=== PATIENT | male | born 1945 | race Caucasian/White ===

== ENCOUNTER 2020-09-02 19:16 | Emergency (ER) | payer OTHER, MEDICARE ==
--- OUTSIDE RECORDS SUMMARY | 2020-09-02 19:28 | XMS ---
:1945 [facility] Organization [facility] Care Team Providers Name Role Phone Devin Steele MD Unavailable Unavailable JAMIE COATS Unavailable Unavailable FelicianoJerome MD Unavailable Unavailable Feliciano, K MD Unavailable Unavailable Feliciano, K MD Unavailable Unavailable Feliciano, K MD Unavailable Unavailable Feliciano, K MD Unavailable Unavailable Feliciano, K MD Unavailable Unavailable Feliciano, K MD Unavailable Unavailable Feliciano, K MD Unavailable Unavailable Feliciano, K MD Unavailable Unavailable Feliciano, K MD Unavailable Unavailable Feliciano, K MD Unavailable Unavailable Feliciano, K MD Unavailable Unavailable Feliciano, K MD Unavailable Unavailable Feliciano, K MD Unavailable Unavailable Feliciano, K MD Unavailable Unavailable Feliciano, K MD Unavailable Unavailable Feliciano, K MD Unavailable Unavailable Feliciano, K MD Unavailable Unavailable Feliciano, K MD Unavailable Unavailable Feliciano, K MD Unavailable Unavailable Feliciano, K MD Unavailable Unavailable Feliciano, K MD Unavailable Unavailable Feliciano, K MD Unavailable Unavailable Feliciano, K MD Unavailable Unavailable ZWEIBEL, FRAN Unavailable Unavailable ZWEIBEL, FRAN Unavailable Unavailable ZWEIBEL, FRAN Unavailable Unavailable ZWEIBEL, FRAN Unavailable Unavailable Re-disclosure Warning The records that you are about to access may contain information from federally- assisted alcohol or drug abuse programs. If such information is present, then the following federally mandated warning applies: This information has been disclosed to you from records protected by federal confidentiality rules (42 CFR part 2). The federal rules prohibit you from making any further disclosure of this information unless further disclosure is expressly permitted by the written consent of the person to whom it pertains or as otherwise permitted by 42 CFR part 2. A general authorization for the release of medical or other information is NOT sufficient for this purpose. The Federal rules restrict any use of the information to criminally investigate or prosecute any alcohol or drug abuse patient.The records that you are about to access may contain highly sensitive health information, the redisclosure of which is protected by Article 27-F of the [facility] Public Health law. If you continue you may haveaccess to information: Regarding HIV / AIDS; Provided by facilities licensed or operated by the [facility] Office of Mental Health; or Provided by the [facility] Office for People With Developmental Disabilities. If such information is present, then the following [facility] mandated warning applies: This information has been disclosed to you from confidential records which are protected by state law. State law prohibits you from making any further disclosure of this information without the specific written consent of the person to whom it pertains, or as otherwise permitted by law. Any unauthorized further disclosure in violation of state law may result in a fine or nursing home sentence or both. A general authorization for the release of medical or other information is NOT sufficient authorization for further disclosure. Encounters Encounter Providers Location Date Indications Data Source(s ) Inpatient Attender: PAULY 08/31/2020 [facility] JAMIE AcunaAdmitter: 02:39:00 [facility]ender: Jerome 08/03/2020 11:45:00 AM Hammad Wiggins MD [facility] Outpatient Attender: WENDY 06/22/2020 02:58:00 PM Z11.59 Hammad Saldana [facility] Z11.59 Outpatient Attender: Devin 07/04/2019 [facility] Mickey Steele MD 09:15:00 AM EDT - OSTEOARTHRITIS [facility] 07/04/2019 HAND 07:11:00 AM EDT BASAL JOINT OSTEOARTHRITIS RIGHT HAND Patient discharged. Insurance Providers Payer name Policy type Policy ID Covered Covered republican's Policy P prosper / Coverage republican ID relationship to [facility] type ramirez [facility] [id number] SP [id number] CARE OPTIONS MEDICARE [id number] SP [id number] T UNK UNK UNK UNK UNK UNK [facility] [id number] PT [id number] CARE OPT[employer] MEDICARE [id number] PT [id number] [facility] [id number] PT [id number] CARE OPTIONS [facility] [id number] PT [id number] CARE [employer] MEDICARE [id number] PT [id number] A Results ID Date Data Source [id number] 09/02/2020 09:52:00 AM [place] [facility] [id number] Name Value Range Interpretation Description Data Sup porting Code Source(s) Document(s ) Echo 2D [id number] [facility] <td> 09/02/2020 [facility] M-Mode [id number] 09:52</td><td> [facility] Complete [id number] Echo 2D M-Mode [facility] Care (TTE) Non-Invasive Complete (TTE) [facility] </td><td> Laboratory [id number] Advanced
Physician [facility]
[address] [place] [address] Road [id number] [place]
[address] Phone [phone] Non-Invasive Adult
Echocardiogram Cardiology Report Name:
DAWOOD MCARTHUR P
Study Date: Advanced 09/02/2020
09:52 AM MRN: Physician [id number]
Services, [facility] BP: 107/68
mmHg : [address]
Gender: [place], [place] Male Age: 75
yrs [id number]
Height: 68 in Phone [phone]) Account
Number: [phone] Fax [phone]
(170) Weight: 176 lb [phone] BSA: 1.9 m2
Patient Adult Location: 4NE Echocardiogram Reason For Report Study: SYNCOPE
& COLLAPSE Name: Tyra MCARTHUR Physician: SHEILA Montano Date: Performed By: 09/02/2020 Nichol Abad, 09:52 AM RDCS
Interpretation Summary The left ventricle BP: is normal in 107/68 mmHg size. There
is normal left : ventricular 1945 wall thickness. Left Gender: ventricular Male systolic
Age: function is 75 yrs normal. Ejection Height: 68 Fraction is in 60-65%. The
left Account Number: ventricular [id number] wall motion is normal. Weight: 176 lb Diastolic
filling BSA: 1.9 m2 assessment is suggestive of
the presence of Patient normal left Location: 4NE atrial
pressure. The Reason For right ventricle Study: SYNCOPE size is mildly & COLLAPSE dilated . There is normal

right Ordering ventricular Physician: wall thickness. SHEILA OSORIO The right
ventricular Performed systolic By: Pollo, function is Nichol, RDCS normal. The right atrium is

dilated. Interpretation Estimated Summary pulmonary
artery systolic The left pressure is ventricle is mildly elevated normal in size. at 35mmHg. The inferior
There vena cava is is normal left dilated. ventricular ICD-10 R55 - wall thickness. Syncope and collapse.
Left Procedure ventricular 97952 - A systolic complete function is two-dimensional normal. transthoracic
echocardiogram Ejection was Fraction is performed. 60-65%. Study quality
is good. The left Left Ventricle ventricular The left wall motion is ventricle is normal. normal in size.
There is normal Diastolic left filling ventricular assessment is wall suggestive of thickness. Left the presence of ventricular normal left systolic
function is atrial normal. pressure. Ejection
Fraction is The right 60-65%. The ventricle size left is mildly ventricular dilated . wall motion is
normal. There is normal Diastolic right filling ventricular assessment is wall thickness. suggestive of the presence of
The normal left right atrial ventricular pressure. systolic Right function is Ventricle The normal. right ventricle
size is mildly The right dilated . There atrium is is normal right dilated. ventricular
wall thickness. Estimated The right pulmonary ventricular artery systolic systolic pressure is function is mildly elevated normal. at 35mmHg. Left Atrium
Normal left The inferior atrial size. vena cava is Right Atrium dilated. The right

atrium is ICD-10 dilated.
Aortic Valve R55 - Syncope The aortic and collapse. valve is trileaflet.

There is mild Procedure aortic valve
calcification. 47157 - A There is no complete aortic two-dimensional stenosis. No transthoracic significant echocardiogram aortic was regurgitation.
Mitral performed. Valve Study quality Structurally is good. normal mitral

valve. Trivial Left mitral valve Ventricle regurgitation.
Tricuspid The left Valve ventricle is Structurally normal in size. normal There is normal tricuspid left valve. Trivial ventricular tricuspid valve wall regurgitation.
Pulmonic thickness. Left Valve ventricular Structurally systolic normal pulmonic function is valve. There is normal. no pulmonic Ejection valve stenosis. Fraction Trivial
pulmonic valve is 60-65%. The regurgitation. left Aorta The ventricular aortic root is wall motion is normal in size. normal. Pulmonary Diastolic Artery filling Estimated
pulmonary assessment is artery systolic suggestive of pressure is the presence of mildly elevated normal left at 35mmHg. atrial Venous The pressure. inferior vena cava is

dilated. Right Pericardium Ventricle There is no
pericardial The right effusion. ventricle size [facility] is mildly Jessica Lloji. dilated . There MMode/2D is normal right Measurements & Calculations
IVSd: 0.96 cm ventricular wall thickness. LVIDd: 5.0 cm The right LV ventricular mass(C)d: systolic LVIDs: 3.1 cm function is 173.3
grams LVPWd: normal. 0.95 cm

LV Left Atrium mass(C)dI:
89.5 grams/m2 Normal left atrial size.

Right Atrium
_ Ao root The right diam: 3.4 cm atrium is Asc Aorta dilated. diam: 3.0 cm

Left atrial Aortic Valve volume LA dimension: 3.9
The cm Ao arch aortic valve is diam: 2.8 cm trileaflet. (2c): 52.1 ml There is mild Left atrial aortic valve volume (4c): calcification. 54.8 ml
There is no aortic stenosis. No significant _ Left atrial aortic volume index regurgitation. Left atrial volume index

(2c): 26.9 Mitral Valve ml/m2
(4c): 28.3 Structurally ml/m2 normal mitral Doppler valve. Trivial Measurements & mitral valve Calculations regurgitation. MV E max francia: 77.1 cm/sec MV

dec time: 0.23 Tricuspid Valve sec Lat E' francia: 10.1 cm/sec
MV A max francia: Structurally 70.3 cm/sec normal tricuspid valve. Trivial tricuspid valve regurgitation. _ Med E' francia: 8.2 cm/sec

E/E' Lateral: Pulmonic 7.6 AV v Valve max: 143.9
cm/sec E/E' Structurally Medial: 9.4 normal pulmonic AV max P.3 valve. There is mmHg no pulmonic valve stenosis.
Trivial _ LVOT max pulmonic valve P.5 mmHg regurgitation. PA max P.0 mmHg TR v

max: 250.4 Aorta cm/sec LVOT v
The max: 94.1 aortic root is cm/sec LVOT normal in size. VTI: 22.0 cm

Pulmonary Artery
Estimated _ RV S francia: pulmonary 12.2 cm/sec artery systolic E/E' Average: pressure is 8.5 TR max mildly elevated gradient: 25.1 at 35mmHg. mmHg

Venous
The inferior vena cava is _ dilated. Reading

Physician: Pericbina Dixon
MD Krysten There is no 09/02/2020 pericardial 11:38 AM effusion.

[facility]
Jessica De La Torre.

MMode/2D Measurements & Calculations
IVSd: 0.96 cm LVIDd: 5.0 cm LV mass(C)d:
LVIDs: 3.1 cm 173.3 grams
LVPWd: 0.95 cm LV mass(C)dI:
89.5 grams/m2

_
Ao root diam: 3.4 cm Asc Aorta diam: 3.0 cm Left atrial volume
LA dimension: 3.9 cm Ao arch diam: 2.8 cm (2c): 52.1 ml
Left atrial volume
(4c): 54.8 ml

_
Left atrial volume index Left atrial volume index
(2c): 26.9 ml/m2 (4c): 28.3 ml/m2

<br/ > Doppler Measurements & Calculations
MV E max francia: 77.1 cm/sec MV dec time: 0.23 sec Lat E' francia: 10.1 cm/sec
MV A max francia: 70.3 cm/sec
__
Med E' francia: 8.2 cm/sec E/E' Lateral: 7.6 AV v max: 143.9 cm/sec
E/E' Medial: 9.4 AV max P.3 mmHg

_
LVOT max P.5 mmHg PA max P.0 mmHg TR v max: 250.4 cm/sec
LVOT v max: 94.1 cm/sec
LVOT VTI: 22.0 cm

_
RV S francia: 12.2 cm/sec E/E' Average: 8.5 TR max gradient: 25.1 mmHg

_

Reading Physician:
Zack Bashir MD 09/02/2020 11:38 AM

</td> ID Date Data Source [id number] 09/02/2020 12:00:00 AM EDT [facility] [place] [id number] Name Value Range Interpretation Description Data Sup porting Code Source(s) Document(s ) Neurophysiol Neurophysiol <td> 09/02/2020 [facility] </td><td> [facility] Laboratory NAME: Neurophysiology [email or web address] DAWOOD MR#: </td><td>
<b [id number] r/>

<br ADMIT DATE: /> 08/31/2020 Neurophysiology SERVICE DATE:

08/31/2020 NAME: DISCHARGE DAWOOD MCARTHUR DATE:
BILLING MR#: [id number] NUMBER:
[id number] ADMIT DATE: TEST DATE: 08/31/2020 08/31/2020
LOG: SERVICE DATE: 08/31/2020 DATE OF
: DISCHARGE DATE: 1945
AGE: 75. BILLING NUMBER: LOCATION: [id number] U

REFERRING TEST DATE: PHYSICIAN: 08/31/2020 Jamie

Pauly, LO M.DMatias HISTORY AND

CONDITIONS DATE OF : OF 1945 RECORDING:

This is a AGE: 75. bedside 24-hour

18-channel LOCATION: TCU digital video EEG

recording on REFERRING a PHYSICIAN: Jamie 75-year-old Dorcas Coats man with a history of

status HISTORY AND post fall CONDITIONS OF and possible RECORDING: This seizure. is a bedside INDICATIONS 24-hour FOR 18-channel MONITORING:
1. To digital video document EEG recording on ictal or a 75-year-old interictal man with a epileptiform history of abnormalitie status s. 2. To
post document fall and subclinical possible seizure seizure. activity.

START INDICATIONS FOR DATE: MONITORIN08/31/2020
at 10:25:00 1. To document p.m. ictal or END DATE: interictal 09/01/2020 epileptiform at 11:27:00 abnormalities. a.m.
BACKGROUND 2. To ACTIVITY: document The patient subclinical is awake and seizure alert with activity. eyes open.

Intermittent START DATE: eye blink 08/31/2020 at artifacts 10:25:00 p.m. are seen in the tracing.

The END DATE: background 09/01/2020 at shows 11:27:00 a.m. generalized low-voltage

activity in BACKGROUND all areas ACTIVITY: The with scant patient is awake low and alert with amplitude 8 eyes open. Hz rhythm in
the Intermittent eye posterior blink artifacts head are seen in the regions. tracing. The Symmetrical background low
voltage fast shows activity generalized seen in the low-voltage central activity in all regions. areas with scant INTERICTAL low EPILEPTIFORM
ABNORMALITIE amplitude 8 Hz S: None. rhythm in the ICTAL posterior head EPILEPTIFORM regions. ABNORMALITIE Symmetrical low S: None.
CLINICAL voltage fast EVENTS: activity seen in None. the central IMPRESSION: regions. This 12-hour

bedside INTERICTAL 18-channel EPILEPTIFORM digital ABNORMALITIES: video EEG None. recording

is within ICTAL normal EPILEPTIFORM limits. No ABNORMALITIES: focal or None. epileptiform

abnormalitie CLINICAL EVENTS: s are seen. None.

DICT: KANE IMPRESSION: PARK DD: This 12-hour 09/01/20 bedside 09 PM 18-channel DT: digital video 0 EEG recording 00:09:31/HN
Job#: is within [id number] normal limits. No focal or ========= epileptiform END OF abnormalities DOCUMENT / are seen. CHANGE LOG FOLLOWS

< br/>
===== DICT: KANE Elec. Signed PARK By PARK
DD: KANE 09/01/20 09 #[id number] on PM 09/02/2020
07:38 ET /HN

===== END OF DOCUMENT / CHANGE LOG FOLLOWS =

Elec. Signed By
KANE NICK #[id number]
on 09/02/2020 07:38 ET

</td> ID Date Data Source [id number] 09/01/2020 10:32:00 PM EDT [facility] [id number] Name Value Range Interpretation Description Data Sup porting Code Source(s) Document(s ) Leukocytes 30.5 k/mm3 4.8-10 <td> 09/01/2020 [place] [#/volume] in .8 22:32</td><td> [facility] Blood by k/mm3 WBC [facility] Automated </td><td><[employer] count raph styleCode="Bold "> 30.5 * CH </paragraph>
(4.8-10.8) k/mm3 </td> Erythrocytes 4.37 m/mm3 4.70-6 <td> 09/01/2020 [facility] r [#/volume] in .10 22:32</td><td> [place] Blood m/mm3 RBC Health Care </td><td><[employer] raph styleCode="Bold "> 4.37 L </paragraph>
(4.70-6.10) m/mm3 </td> Hemoglobin 12.6 g/dL 14.0-1 <td> 09/01/2020 [place] [Mass/volume] 8.0 22:32</td><td> [place] in Blood g/dL HGB [facility] </td><td><[employer] raph styleCode="Bold "> 12.6 L </paragraph>
(14.0-18.0) g/dL </td> Hematocrit 40.5 % 40.8-4 <td> 09/01/2020 [place] [Volume 6.9 % 22:32</td><td> County Fraction] of HCT Health Care Blood by </td><td><[employer] Automated raph count styleCode="Bold "> 40.5 L </paragraph>
(40.8-46.9) % </td> Erythrocyte 31.1 % 32.0-3 <td> 09/01/2020 [place] mean 6.0 % 22:32</td><td> County corpuscular MCHC [facility] Care hemoglobin </td><td><[employer] concentration raph [Mass/volume] styleCode="Bold in Blood from "> Fetus by 31.1 Automated L count </paragraph>
(32.0-36.0) % </td> Erythrocyte 92.7 fL 80.0-9 <td> 09/01/2020 [place] mean 4.0 fL 22:32</td><td> County corpuscular MCV </td><td> Health Care volume Corporation [Entitic 92.7 volume] by Automated
count (80.0-94.0) fL </td> Erythrocyte 28.8 pg 27.0-3 <td> 09/01/2020 [place] mean 1.5 pg 22:32</td><td> [facility] corpuscular MCH </td><td> Health Care hemoglobin [facility] [Entitic mass] 28.8 by Automated count
(27.0-31.5) pg </td> Erythrocyte 13.4 % 11.5-1 <td> 09/01/2020 [place] distribution 4.5 % 22:32</td><td> County width [Entitic RDW </td><td> Health Car e volume] by [facility] Automated 13.4 count
(11.5-14.5) % </td> Platelet mean 12.3 fL 9.8-12 <td> 09/01/2020 [facility] r volume .8 fL 22:32</td><td> [facility] [Entitic MPV </td><td> Health Care volume] in [facility] Blood by 12.3 Automated count
(9.8-12.8) fL </td> Platelets 79 k/mm3 160-41 <td> 09/01/2020 [place] [#/volume] in 0 22:32</td><td> [facility] Blood by k/mm3 Platelet Count [employer] Automated </td><td><[employer] count raph styleCode="Bold "> 79 L </paragraph>
(160-410) k/mm3 </td> Monocytes/Leuk 3.0 % 0.0-11 <td> 09/01/2020 [facility] er ocytes [Pure .0 % 22:32</td><td> County number Monocytes. Health Care fraction] in </td><td> [facility] Blood by Automated 3.0 count
(0.0-11.0) % </td> Lymphocytes 78.0 % 16.0-5 <td> 09/01/2020 [place] [#/volume] in 0.0 % 22:32</td><td> [facility] Blood by Lymphocytes [employer] Automated </td><td><[employer] count raph styleCode="Bold "> 78.0 H </paragraph>
(16.0-50.0) % </td> Basophils 0.0 % 0.0-2. <td> 09/01/2020 [place] [#/volume] in 0 % 22:32</td><td> [facility] Blood by Basophils Health Care Automated </td><td> Corporation count 0.0
(0.0-2.0) % </td> Basophils+Eosi 0.0 % 0.0-5. <td> 09/01/2020 [facility] er nophils+Monocy 0 % 22:32</td><td> [facility] bernard [#/volume] Eosinophils Health Care in Blood by </td><td> [facility] Automated count 0.0
(0.0-5.0) % </td> Anisocytosis Slight <td> 09/01/2020 [place] [Presence] in 22:32</td><td> [facility] Blood by Light Anisocytosis Health Care microscopy </td><td> [facility] Slight
</td> Atypical 2.0 % % <td> 09/01/2020 [place] Lymphs 22:32</td><td> [facility] Atypical Lymphs Health Care </td><td><e27 graph styleCode="Bold "> 2.0 * AB </paragraph>
% </td> Neutrophils 17.0 % 34.0-7 <td> 09/01/2020 [place] [#] in Body 6.0 % 22:32</td><td> [facility] fluid by Neutrophils Health Care Manual count </td><td><[employer] raph styleCode="Bold "> 17.0 L </paragraph>
(34.0-76.0) % </td> Schistocytes Occasional <td> 09/01/2020 [facility] r [Presence] in 22:32</td><td> [facility] Blood by Light Schistocytes Health Care microscopy </td><td> [facility] Occasional
</td> Macrocytes Slight <td> 09/01/2020 [place] [Presence] in 22:32</td><td> [facility] Blood by Light Macrocytic Health Care microscopy </td><td> [facility] Slight
</td> Ovalocytes Few <td> 09/01/2020 [place] [Presence] in 22:32</td><td> County Blood by Light Ovalocytes Health Care microscopy </td><td> [facility] Few
</td> Potassium 3.9 mEq/L 3.5-5. <td> 09/01/2020 [place] [Moles/volume] 1 22:32</td><td> County in Serum or mEq/L Potassium-Serum Health Care Plasma </td><td> [facility] 3.9
(3.5-5.1) mEq/L </td> Sodium 140 mEq/L 135-14 <td> 09/01/2020 [place] [Moles/volume] 5 22:32</td><td> County in Serum or mEq/L Sodium-Serum Health Care Plasma </td><td> [facility] 140
(135-145) mEq/L </td> Glucose 161 mg/dL 70-105 <td> 09/01/2020 [place] [Mass/volume] mg/dL 22:32</td><td> County in Blood Glucose-Serum Health Care </td><td><[employer] raph styleCode="Bold "> 161 H </paragraph>
(70-105) mg/dL </td> Chloride 104 mEq/L 98-107 <td> 09/01/2020 [place] [Moles/volume] mEq/L 22:32</td><td> County in Serum or Chloride Health Care Plasma </td><td> [facility] 104
(98-107) mEq/L </td> Carbon 28 mEq/L 22-30 <td> 09/01/2020 [place] dioxide, total mEq/L 22:32</td><td> [facility] [Moles/volume] CO2 </td><td> Health Car e in Serum or [facility] Plasma 28
(22-30) mEq/L </td> Urea nitrogen 15 mg/dL 6-22 <td> 09/01/2020 [place] r [Mass/volume] mg/dL 22:32</td><td> County in Blood BUN </td><td> Health Care Corporation 15
(6-22) mg/dL </td> Aspartate 27 U/L 4-35 <td> 08/31/2020 [place] aminotransfera U/L 09:30</td><td> [facility] se [Enzymatic AST (SGOT) Health Care activity/volum </td><td> Corporation e] in Serum or Plasma 27
(4-35) U/L </td> Alanine 17 U/L 6-55 <td> 08/31/2020 [place] aminotransfera U/L 09:30</td><td> [facility] se [Enzymatic ALT (SGPT) Health Care activity/volum </td><td> Corporation e] in Serum or Plasma 17
(6-55) U/L </td> Creatinine 0.96 mg/dL 0.72-1 <td> 09/01/2020 [place] [Moles/volume] .25 22:32</td><td> [facility] in Serum or mg/dL Creatinine. Health Care Plasma </td><td> [facility] 0.96
(0.72-1.25) mg/dL </td> Bilirubin.tota 1.2 mg/dL 0.2-1. <td> 08/31/2020 [facility] er l 3 09:30</td><td> [facility] [Mass/volume] mg/dL Bilirubin - Health Care in Blood [employer] </td><td> 1.2
(0.2-1.3) mg/dL </td> Proteins - 5.4 g/dL 6.4-8. <td> 08/31/2020 [place] Total 3 g/dL 09:30</td><td> [facility] Proteins - Health Care Total [facility] </td><td><manny raph styleCode="Bold "> 5.4 L </paragraph>
(6.4-8.3) g/dL </td> Albumin 3.7 g/dL 3.4-4. <td> 08/31/2020 [place] [Mass/volume] 8 g/dL 09:30</td><td> [facility] in Serum or Albumin Health Care Plasma </td><td> [facility] 3.7
(3.4-4.8) g/dL </td> Calcium 8.5 mg/dL 8.6-10 <td> 09/01/2020 [place] [Mass/volume] .2 22:32</td><td> County in Blood mg/dL Calcium Health Care </td><td><[employer] raph styleCode="Bold "> 8.5 L </paragraph>
(8.6-10.2) mg/dL </td> Hemolysis No <td> 09/01/2020 [place] index of Serum Hemolysis 22:32</td><td> County or Plasma Hemolysis Index Health Care </td><td> [facility] No Hemolysis
</td> Globulin 1.7 gm/dL 2.9-4. <td> 08/31/2020 [place] [Mass/volume] 0 09:30</td><td> County in Serum gm/dL Globulin Health Care </td><td><[employer] raph styleCode="Bold "> 1.7 L </paragraph>
(2.9-4.0) gm/dL </td> Anion gap in 8 mEq/L 7-13 <td> 09/01/2020 [place] Serum or mEq/L 22:32</td><td> [facility] Plasma Anion Gap [facility] </td><td> [facility] 8
(7-13) mEq/L </td> Lipemic index No Lipemia <td> 09/01/2020 [facility] er of Serum or 22:32</td><td> [facility] Plasma Lipemia Index Health [facility] </td><td> [facility] No Lipemia
</td> Phosphate 2.3 mg/dL 2.3-4. <td> 09/01/2020 [place] [Mass/volume] 7 22:32</td><td> County in Serum or mg/dL Inorganic [facility] Plasma Phosphorus [facility] </td><td> 2.3
(2.3-4.7) mg/dL </td> Icteric index Non Icteric <td> 09/01/2020 [facility] of Serum or 22:32</td><td> [facility] Plasma Icteric Index Health Care </td><td> [facility] Non Icteric
</td> aPTT panel - 29.6 secs 25.0-3 <td> 09/01/2020 [place] Platelet poor 6.5 22:32</td><td> [facility] plasma secs Partial Health Care Thromboplastin [facility] Time </td><td> 29.6
(25.0-36.5) secs
PLEASE NOTE: New reference range in effect June 08, 2020.

(25.0-36.5) secs </td> Prothrombin 13.5 secs 9.4-12 <td> 09/01/2020 [place] time (PT) .5 22:32</td><td> [facility] secs Prothrombin Health Care Time. [facility] </td><td><manny raph styleCode="Bold "> 13.5 H </paragraph>
(9.4-12.5) secs </td> Amylase 95 U/L 22-100 <td> 08/31/2020 [place] [Enzymatic U/L 01:38</td><td> [facility] activity/volum Amylase Level Health Care e] in Serum or </td><td> [facility] Plasma 95
(22-100) U/L </td> Magnesium 1.8 mg/dL 1.6-2. <td> 09/01/2020 [place] [Mass/volume] 6 22:32</td><td> [facility] in Serum or mg/dL Magnesium Level Health Care Plasma </td><td> [employer] 1.8
(1.6-2.6) mg/dL </td> ID Date Data Source [id number] 08/31/2020 08:07:00 PM [place] [facility] [id number] [facility] Name Value Range Interpretation Description Data Sup porting Code Source(s) Document(s ) Cervical (PACSIMAGE <td> 08/31/2020 [place] Spine 02:11</td><td> [facility] W/Out ) Final Cervical Spine Health Care Contrast- Result W/Out [facility] CT Name: </td><td><paragr CAMEROON, aph TRAUMA MRN: styleCode="Hailna [id number] Sex: F s">(PACSIMAGE : 01/29/1967 )</paragraph><br/ Location: F >
Final Admitting Result Physician:

EMERGENCY Name: [facility], SERVICE TRAUMA Requesting
MRN: Physician: [id number] Sex: F ASPEN AZIM
Exam: CT C : 01/29/1967 SPINE C- Location: F 08/31/2020
02:24 Admitting HISTORY: Physician: Trauma EMERGENCY SERVICE TECHNIQUE: A
noncontrast Requesting multidetector Physician: ASPEN spiral CT AZIM examination

of the Exam: CT C SPINE cervical spine C- 08/31/2020 was performed, 02:24 followed by

multiple 2D HISTORY: Trauma sagittal and coronal

reconstruction TECHNIQUE: A s. noncontrast Up-to-date CT multidetector equipment spiral CT using examination Automatic
of Exposure the cervical Control, dose spine was modulation, performed, and iterative followed by reconstruction multiple 2D dose reduction
software was sagittal and employed. coronal The total reconstructions. study DLP is approximately

1318.9 mGy-cm. Up-to-date CT equipment using COMPARISON: Automatic None. Exposure Control, FINDINGS: dose There is no
acute cervical modulation, and spine fracture iterative or traumatic reconstruction subluxation. dose reduction Facets are software anatomically
was aligned and employed. intact.
The There is total study DLP maintenance of is approximately usual cervical 1318.9 mGy-cm. lordosis. There is 2 mm

of COMPARISON: None. degenerative anterolisthesi

s of C4 on C5. FINDINGS: Vertebral body

height is There is no acute preserved cervical spine throughout the fracture or cervical traumatic spine. There subluxation. is mild
multilevel Facets are loss of anatomically intervertebral aligned and disc height intact. throughout the

cervical spine There is with vacuum maintenance of disc phenomena usual cervical at C5-C6 and lordosis. There C6-C7. is 2 mm There is
of multilevel degenerative degenerative anterolisthesis spondylosis of C4 on C5. without Vertebral body high-grade height central canal
is stenosis. preserved There is throughout the stenosis most cervical spine. prominently of There is mild the left multilevel C4-C5 and
C5-C6 neural loss of foramen intervertebral secondary to disc height uncovertebral throughout the facet cervical spine hypertrophy.
There are with vacuum disc prominent phenomena at bilateral C5-C6 and C6-C7. cervical lymph nodes. Support

lines are There is seen. multilevel IMPRESSION: degenerative 1. No spondylosis evidence of without acute fracture high-grade or traumatic
subluxation to central canal the stenosis. There visualized is stenosis most cervical prominently of spine. 2.
Multilevel the left C4-C5 degenerative and C5-C6 neural changes, foramen secondary incompletely to uncovertebral characterized
on CT. facet Resident hypertrophy. Radiologist:

Ric Mendez MD There are Resident prominent Radiologist bilateral Attending cervical lymph Radiologist: nodes. Support Marcellus Suh MD
are Finalizing seen. Radiologist:

Marcellus IMPRESSION: Vikash JHAVERI

Transcribed 1. No evidence Date: of acute fracture 08/31/2020 or traumatic 02:50 subluxation to Finalized
Date: the visualized 08/31/2020 cervical spine. 08:34
2. Multilevel degenerative changes, incompletely characterized
on CT.

<b r/> Resident Radiologist: Ric Mendez MD Resident Radiologist
Attending Radiologist: Marcellus Suh MD
Finalizing Radiologist: Marcellus Suh MD
Transcribed Date: 08/31/2020 02:50
Finalized Date: 08/31/2020 08:34

</td> Chest (PACSIMAGE <td> 08/31/2020 [place] Portable 01:56</td><td> [facility] ) Final Chest Portable Health Care Result </td><td><[employer] Name: JONA, styleCode="Italic TRAUMA MRN: s">(PACSIMAGE [id number] Sex: F : )</paragraph><br/ 01/29/1967 >
Final Location: F Result Admitting

Physician: Name: [facility], EMERGENCY TRAUMA SERVICE
MRN: Requesting [id number] Sex: F Physician:
TITO GONZALES : 01/29/1967 Exam: Location: F CHEST PORTABLE
08/31/2020 Admitting 01:53 Physician: HISTORY: EMERGENCY SERVICE Trauma. Fall.
TECHNIQUE: Requesting Portable chest Physician: TITO GONZALES COMPARISON:

None Exam: CHEST available. PORTABLE FINDINGS: 08/31/2020 01:53 Endotracheal tube

terminates in HISTORY: mid thoracic Trauma. Fall. trachea.

Enteric TECHNIQUE: catheter Portable chest courses past radiograph the GE

junction with COMPARISON: None tip excluded available. from the

field view. FINDINGS: No focal
consolidation. Endotracheal tube There are no terminates in mid pleural thoracic trachea. effusions. Enteric There is no
discernible catheter courses pneumothorax. past the GE The cardiac junction with tip silhouette is excluded from unremarkable.
There are the field view. multiple right-sided

No rib fractures. focal There is some consolidation. prominent There are no markings noted pleural in the right effusions. There upper lung
field. is no IMPRESSION: discernible 1. No focal pneumothorax. The consolidation cardiac seen. 2. silhouette is Multiple unremarkable. right-sided
rib fractures. There are In view of the multiple clinical right-sided rib history of fractures. There trauma, is some prominent dedicated
imaging of markings noted clinical in the right regions of upper lung field. interest are recommended

for further IMPRESSION: evaluation. In
1. addition No focal recommend consolidation correlation seen. with the CT
2. study Multiple performed on right-sided rib 08/31/2020. fractures. In view of the Resident clinical Radiologist:
Ric Mendez MD history of Resident trauma, dedicated Radiologist imaging of Attending clinical regions Radiologist: of interest Matt Silverio
are recommended Finalizing for further Radiologist: evaluation. In Matt bedolla MD recommend Transcribed
Date: correlation with 08/31/[address] study 02:10 performed on Finalized 08/31/2020. Date: 08/31/2020

<b 07:59 r/> Resident Radiologist: Ric Mendez MD Resident Radiologist
Attending Radiologist: Matt Silverio MD
Finalizing Radiologist: Matt Silverio MD
Transcribed Date: 08/31/2020 02:10
Finalized Date: 08/31/2020 07:59

</td> Brain (PACSIMAGE <td> 08/31/2020 [place] With&With 20:07</td><td> [place] out ) Final Brain Health Care Contrast- Result With&Without [employer] MRI Name: Contrast-MRI LYUBOV, </td><td><iván Chapman MRN: ph [id number] Sex: M styleCode="Italic : s">(PACSIMAGE 1945 Location: M )</paragraph><br/ Admitting >
Final Physician: Blessing COATS

Requesting Name: LYUBOV Physician: DAWOOD OSORIO
MRN: Exam: MRI [id number] Sex: M BRAIN C+/C-
08/31/2020 : 1945 21:32 Location: M CLINICAL
INDICATION: Admitting Seizure Physician: JAMIE COATS TECHNIQUE:
Multiplanar Requesting multisequentia Physician: annalisa MR imaging SHEILA OSORIO of the brain

was obtained, Exam: MRI including thin BRAIN C+/C- section 08/31/2020 21:32 coronal T2 and T2 FLAIR

images through CLINICAL the temporal INDICATION: lobes. Before Seizure protocol and after the administration

of contrast. TECHNIQUE: Contrast dose: Multiplanar 8 cc gadavist multisequential MR imaging of the COMPARISON: brain None.
was FINDINGS: obtained, The ventricles including thin are normal in section coronal caliber. T2 and T2 FLAIR Mild diffuse
atrophy is images through present with the temporal widening of lobes. Before and the ventricles after the as well as. administration Scattered
foci of T2 of contrast. hyperintensity Contrast dose: 8 are present in cc gadavist the cerebral

white matter, COMPARISON: nonspecific None. but compatible

with mild FINDINGS: chronic

microangiopath The ventricles ic change.. are normal in There is no caliber. abnormally
Mild restricted diffuse atrophy diffusion to is present with suggest widening of the acute ventricles infarction.
as There is no well as. evidence of
acute Scattered foci of intraparenchym T2 hyperintensity al or are present in subarachnoid the cerebral hemorrhage.
There is no white matter, extra-axial nonspecific but collection. compatible with There is no mild chronic abnormal microangiopathic susceptibility
artifact to change.. There suggest is no abnormally calcification restricted or chronic diffusion to hemorrhage. suggest After the
acute administration infarction. of contrast,
there is no There is no abnormal evidence of acute enhancement.. intraparenchymal There is or subarachnoid bilateral
mastoid air hemorrhage. cell effusion. There is no Mild mucosal extra-axial thickening collection. of the
sphenoid There is no sinuses is abnormal noted. susceptibility IMPRESSION: artifact to 1. No suggest intracranial calcification mass or mass
effect. 2. or chronic Chronic hemorrhage. appearing mild

white matter After the microangiopath administration of ic change.. contrast, there is no abnormal Resident enhancement.. Radiologist:

Attending There is Radiologist: bilateral mastoid Ric Savage air cell MD effusion. Mild Finalizing mucosal Radiologist: thickening Ric Savage
of MD the sphenoid Transcribed sinuses is noted. Date: 08/31/2020

22:00 IMPRESSION: Finalized

Date: 1. No 08/31/2020 intracranial mass 22:07 or mass effect.
2. Chronic appearing mild white matter microangiopathic change..

<b r/> Resident Radiologist:
Attending Radiologist: Ric Savage MD
Finalizing Radiologist: Ric Savage MD
Transcribed Date: 08/31/2020 22:00
Finalized Date: 08/31/2020 22:07

</td> CT LS (PACSIMAGE <td> 08/31/2020 [place] Spine 2D 02:15</td><td> CT [place] Recon ) Final LS Spine 2D Recon Health C are Result </td><td>[employer] Name: aph [facility], styleCode="Italic TRAUMA MRN: s">(PACSIMAGE [id number] Sex: F : )</paragraph><br/ 01/29/1967 >
Final Location: F Result Admitting

Physician: Name: [facility], EMERGENCY TRAUMA SERVICE
MRN: Requesting [id number] Sex: F Physician:
ASPEN AZIM : 01/29/1967 Exam: CT LS Location: F SPINE 2D RECON
08/31/2020 Admitting 02:46 Physician: CLINICAL EMERGENCY SERVICE INDICATION:
Trauma Requesting TECHNIQUE: Physician: ASPEN Axial, AZIM sagittal and

coronal Exam: CT LS SPINE reconstruction 2D RECON images of 08/31/2020 02:46 the lumbar spine were

generated from CLINICAL source images INDICATION: of a CT Trauma thorax/abdomen

/pelvis. These TECHNIQUE: Axial, reconstruction sagittal and images are coronal submitted reconstruction for images interpretation
of the . lumbar spine were Up-to-date CT generated from equipment source images of using a CT Automatic
Exposure thorax/abdomen/pe Control, dose lvis. These modulation, reconstruction and iterative images are reconstruction submitted dose reduction
for software was interpretation. employed. The total

study DLP is Up-to-date CT approximately equipment using 869.4 mGy-cm. Automatic Exposure Control, COMPARISON: dose None.
FINDINGS: modulation, and There is no iterative evidence of reconstruction acute fracture dose reduction or traumatic software subluxation
was to the employed. visualized
The lumbosacral total study DLP spine. is approximately There is 869.4 mGy-cm. maintenance of

the normal COMPARISON: lumbar None. lordosis.

There is FINDINGS: disc height

loss at L4-L5 There is no with vacuum evidence of acute disc phenomena fracture or at L4-L5 and traumatic L5-S1. There subluxation is no
to significant the visualized listhesis. lumbosacral There is a spine. levoscoliosis

of the lumbar There is spine. There maintenance of is no the normal lumbar vertebral body lordosis. There height loss.. is There are
disc is multilevel height loss at degenerative L4-L5 with vacuum spondylosis disc phenomena at without L4-L5 high-grade
and central canal L5-S1. There is stenosis. no significant There is listhesis. There multilevel is a bilateral levoscoliosis neural
foraminal of the lumbar stenosis. spine. There is There is no vertebral body multilevel height loss.. posterior

complex There are is arthropathy.. multilevel Please see degenerative dedicated CT spondylosis scan of the without abdomen and high-grade pelvis for
soft tissue central canal findings. stenosis. There IMPRESSION: is multilevel 1. No bilateral neural evidence of
acute fracture foraminal or traumatic stenosis. There malalignment is multilevel to the posterior complex visualized arthropathy.. lumbosacral

spine. 2. Please see Please see dedicated CT scan dedicated CT of the abdomen scan of the and pelvis for abdomen and soft pelvis for
tissue soft tissue findings. findings.

IMPRESSION: Resident

Radiologist: 1. No evidence Ric Mendez MD of acute fracture Resident or traumatic Radiologist malalignment to Attending
Radiologist: the visualized Marcellus lumbosacral Vikash JHAVERI spine. Finalizing

2. Radiologist: Please see Marcellus dedicated CT scan Vikash JHAVERI of the abdomen Transcribed and pelvis for Date:
08/31/2020 soft tissue 02:57 findings. Finalized Date:

<b 08/31/2020 r/>
08:51 Resident Radiologist: Ric Mendez MD Resident Radiologist
Attending Radiologist: Marcellus Suh MD
Finalizing Radiologist: Marcellus Suh MD
Transcribed Date: 08/31/2020 02:57
Finalized Date: 08/31/2020 08:51

</td> Chest/Abd (PACSIMAGE <td> 08/31/2020 [place] /Pelvis 02:15</td><td> [facility] With ) Final Chest/Abd/Pelvis Health Hi re Cont-CT Result With Cont[facility] Name: </td><td><paragra CAMEROON, ph TRAUMA MRN: styleCode="Italic [id number] Sex: F s">(PACSIMAGE : 01/29/1967 )</paragraph><br/ Location: F >
Final Admitting Result Physician:

EMERGENCY Name: [facility], SERVICE TRAUMA Requesting
MRN: Physician: [id number] Sex: F ASPEN AZIM
Exam: CT : 01/29/1967 THORAX/ABD/PEL Location: F V C+
08/31/2020 Admitting 02:45 Physician: INDICATION: EMERGENCY SERVICE Status post
fall. Requesting COMPARISON: Physician: ASPEN None.. AZIM TECHNIQUE:

Post-contrast Exam: CT CT of the THORAX/ABD/PELV chest, abdomen C+ 08/31/2020 and pelvis 02:45 was performed.

100 mL of INDICATION: Omnipaque 350 Status post fall. was injected intravenously

without COMPARISON: complication. None.. Oral contrast

was not TECHNIQUE: administered. Post-contrast CT Trauma of the chest, protocol was abdomen and utilized. pelvis Up-to-date CT
was equipment performed. 100 mL using of Omnipaque 350 Automatic was injected Exposure intravenously Control, dose
modulation, without and iterative complication. reconstruction Oral contrast was dose reduction not administered. software was Trauma employed.
The total protocol was study DLP is utilized. approximately
869.4 mGy-cm. Up-to-date CT FINDINGS: equipment using TUBES AND Automatic LINES: Exposure Control, Endotracheal dose tube
terminates in modulation, and the iterative midthoracic reconstruction trachea. dose reduction Enteric software catheter
was terminates employed. within the
The stomach. total study DLP AIRWAYS, is approximately LUNGS, and 869.4 mGy-cm. PLEURA: The

central FINDINGS: tracheobronchi
al tree is TUBES AND LINES: patent. There Endotracheal tube is bilateral terminates in the lower lobe midthoracic atelectasis.
There is no trachea. Enteric pleural catheter effusion. terminates within There is no the stomach. pneumothorax.

AIRWAYS, MEDIASTINUM: LUNGS, and There are no PLEURA: The enlarged central mediastinal, tracheobronchial hilar or tree axillary
is lymph nodes. patent. There is The visualized bilateral lower portion of the lobe atelectasis. thyroid gland There is is
no unremarkable. pleural effusion. HEART There is no AND VESSELS: pneumothorax. The heart is

normal in MEDIASTINUM: size. There There are no are no enlarged coronary mediastinal, artery hilar or axillary atheroscleroti
c lymph nodes. calcifications The visualized . The thoracic portion of the aorta has a thyroid gland is normal unremarkable. caliber. LIVER: There

is mild HEART AND hepatomegaly. VESSELS: The BILIARY heart is normal SYSTEM: There in size. There is no biliary are no ductal
dilatation. coronary artery GALLBLADDER: atherosclerotic There is calcifications. cholelithiasis The thoracic .
PANCREAS: aorta has a Within normal normal caliber. limits. SPLEEN: Within

normal limits. LIVER: There is ADRENALS: mild Within normal hepatomegaly. limits.
KIDNEYS/URETER BILIARY SYSTEM: S: No There is no hydronephrosis biliary ductal or obstructing dilatation. stones. There
are bilateral GALLBLADDER: renal cysts. There is cholelithiasis. BOWEL/MESENTER Y: No bowel

obstruction or PANCREAS: Within wall normal limits. thickening.
URINARY SPLEEN: Within BLADDER: normal limits. Urinary
bladder is ADRENALS: Within under normal limits. distended, limiting

evaluation. KIDNEYS/URETERS: No hydronephrosis PERITONEUM/RET or obstructing ROPERITONEUM: stones. There No free air.
No free or are bilateral loculated renal cysts. fluid. LYMPH

NODES: No abdominal or BOWEL/MESENTERY: pelvic No bowel lymphadenopath obstruction or y. VESSELS: wall thickening. Atheroscleroti c

calcifications URINARY BLADDER: . BONES: Urinary bladder Degenerative is under changes of the distended, spine. There limiting is acute on
chronic evaluation. fracture of

the right fifth rib. PERITONEUM/RETROP SOFT TISSUES: ERITONEUM: No Within normal free air. No free limits. or loculated IMPRESSION:
1. Acute on fluid. chronic
LYMPH fracture of NODES: No the right abdominal or fifth rib. pelvic 2. lymphadenopathy. Cholelithiasis
3. Bilateral VESSELS: lower lobe Atherosclerotic atelectasis. calcifications. 4. Distended stomach with

fluid. BONES: Aspiration Degenerative precautions changes of the suggested.. spine. There is acute on chronic Resident
Radiologist: fracture of the Ric Mendez MD right fifth rib. Resident
Radiologist SOFT TISSUES: Attending Within normal Radiologist: limits. Freddy Spaulding

IMPRESSION: Finalizing
1. Radiologist: Acute on chronic Freddy Spaulding fracture of the right fifth rib. Transcribed
Date: 2. 08/31/2020 Cholelithiasis 03:10
Finalized 3. Bilateral Date: lower lobe 08/31/2020 atelectasis. 10:32
4. Distended stomach with fluid. Aspiration precautions suggested..

<b r/> Resident Radiologist: Ric Mendez MD Resident Radiologist
Attending Radiologist: Freddy Spaulding MD
Finalizing Radiologist: Freddy Spaulding MD
Transcribed Date: 08/31/2020 03:10
Finalized Date: 08/31/2020 10:32

</td> CT T (PACSIMAGE <td> 08/31/2020 [place] Spine 2D 02:15</td><td> [place] Recon ) Final T Spine 2D Recon Health [facility] re Result </td><td>[employer] Name: [facility], styleCode="Italic TRAUMA MRN: s">(PACSIMAGE [id number] Sex: F : )</paragraph><br/ 01/29/1967 >
Final Location: F Result Admitting

Physician: Name: [facility], EMERGENCY TRAUMA SERVICE
MRN: Requesting [id number] Sex: F Physician:
ASPEN AZIM : 01/29/1967 Exam: CT T Location: F SPINE 2D RECON
08/31/2020 Admitting 02:46 Physician: CLINICAL EMERGENCY SERVICE INDICATION:
Trauma Requesting TECHNIQUE: Physician: ASPEN Axial, AZIM sagittal and

coronal Exam: CT T SPINE reconstruction 2D RECON images of 08/31/2020 02:46 the thoracic spine were

generated from CLINICAL source images INDICATION: of a CT Trauma thorax/abdomen

/pelvis. These TECHNIQUE: Axial, reconstruction sagittal and images are coronal submitted reconstruction for images interpretation
of the . thoracic spine Up-to-date CT were generated equipment from source using images of a Automatic
CT Exposure thorax/abdomen/pe Control, dose lvis. These modulation, reconstruction and iterative images are reconstruction submitted dose reduction
for software was interpretation. employed. The total

study DLP is Up-to-date CT approximately equipment using 869.4 mGy-cm. Automatic Exposure Control, COMPARISON: dose None.
FINDINGS: modulation, and There is no iterative evidence of reconstruction acute fracture dose reduction or traumatic software subluxation
was to the employed. visualized
The thoracic total study DLP spine. is approximately There is 869.4 mGy-cm. maintenance of

the normal COMPARISON: thoracic None. kyphosis.

There is a FINDINGS: dextroscoliosi

s. There is no There is no significant evidence of acute vertebral body fracture or height loss. traumatic There is subluxation multilevel
to mild disc the visualized space thoracic spine. narrowing with vacuum disc

phenomena. There is There is no maintenance of high-grade the normal central canal thoracic stenosis.. kyphosis. There There is an is aberrant right
a subclavian dextroscoliosis. artery. There is no Atelectasis of significant the left vertebral body lower lobe is height seen. Please
loss. see dedicated There is CT scan of multilevel mild the chest for disc space intrathoracic narrowing with findings. vacuum IMPRESSION:
disc 1. No phenomena. There evidence of is no high-grade acute fracture central canal or traumatic stenosis.. malalignment

to the There is an visualized aberrant right thoracic subclavian spine. 2. artery. Please see Atelectasis of dedicated CT
scan of the the left lower chest for lobe is seen. intrathoracic Please see findings. dedicated CT scan of Resident
the Radiologist: chest for Ric Mendez MD intrathoracic Resident findings. Radiologist

Attending IMPRESSION: Radiologist:

Marcellus 1. No evidence Vikash JHAVERI of acute fracture Finalizing or traumatic Radiologist: malalignment to Marcellus
Vikash JHAVERI the visualized Transcribed thoracic spine. Date: 08/31/2020

2. 02:54 Please see Finalized dedicated CT scan Date: of the chest for 08/31/2020 intrathoracic 08:42
findings.

<b r/> Resident Radiologist: Ric Mendez MD Resident Radiologist
Attending Radiologist: Marcellus Suh MD
Finalizing Radiologist: Marcellus Suh MD
Transcribed Date: 08/31/2020 02:54
Finalized Date: 08/31/2020 08:42

</td> Head (PACSIMAGE <td> 08/31/2020 [facility] 02:11</td><td> [place] Contrast- ) Final Head Without [facility] CT Result Cont[facility] Name: </td><td><paragra CAMEROON, ph TRAUMA MRN: styleCode="Italic [id number] Sex: F s">(PACSIMAGE : 01/29/1967 )</paragraph><br/ Location: F >
Final Admitting Result Physician:

EMERGENCY Name: [facility], SERVICE TRAUMA Requesting
MRN: Physician: [id number] Sex: F ASPEN AZIM
Exam: CT HEAD : 01/29/1967 C- 08/31/2020 Location: F 02:24
CLINICAL Admitting HISTORY: Physician: Submitted EMERGENCY SERVICE clinical
information: Requesting Trauma. Fall.. Physician: ASPEN MATHIS COMPARISON:

None Exam: CT HEAD C- TECHNIQUE: 08/31/2020 02:[address] scan of the

head is CLINICAL performed from HISTORY: the base of Submitted the skull to clinical the vertex information: utilizing Trauma. Fall.. axial image acquisition.

Multiplanar COMPARISON: None reformatted images are

provided. TECHNIQUE: Up-to-date CT Noncontrast CT equipment scan of the head using is performed from Automatic
Exposure the base of Control, dose the skull to the modulation, vertex utilizing and iterative axial image reconstruction acquisition. dose reduction
software was Multiplanar employed. reformatted The total images are study DLP is provided. approximately

1318.9 mGy-cm. Up-to-date CT FINDINGS: equipment using Streak Automatic artifact Exposure Control, secondary to dose patient's
dental amalgam modulation, and limits iterative evaluation of reconstruction the posterior dose reduction fossa. software There is
was prominence of employed. the
The ventricular total study DLP system and is approximately sulci 1318.9 mGy-cm. consistent with volume

loss. There FINDINGS: are mild

subcortical Streak artifact and secondary to periventricula patient's dental r amalgam limits hypodensities,
nonspecific evaluation of the but likely posterior fossa. representing chronic

ischemic There is change. prominence of the There is no ventricular evidence of system and sulci mass effect, consistent midline shift,
acute with volume loss. intracranial There are mild hemorrhage, or subcortical and extra-axial periventricular collections.
There is no hypodensities, displaced nonspecific but calvarial likely fracture. The representing paranasal chronic ischemic sinuses and
mastoid air change. cells are

clear. Support There is no lines are evidence of mass partially effect, midline seen. shift, acute IMPRESSION: intracranial 1. No CT
evidence of hemorrhage, or acute extra-axial intracranial collections. hemorrhage,

focal mass There is no effect, or displaced hydrocephalus. calvarial fracture. The Resident paranasal sinuses Radiologist:
Ric Mendez MD and mastoid Resident air cells are Radiologist clear. Support Attending lines are Radiologist: partially Marcellus
Vikash JHAVERI seen. Finalizing

Radiologist: IMPRESSION: Marcellus Suh MD

Transcribed 1. No CT Date: evidence of acute 08/31/2020 intracranial 02:38 hemorrhage, focal Finalized mass Date:
effect, 08/31/2020 or hydrocephalus. 08:20

<b r/>

<br/ > Resident Radiologist: Ric Mendez MD Resident Radiologist
Attending Radiologist: Marcellus Suh MD
Finalizing Radiologist: Marcellus Suh MD
Transcribed Date: 08/31/2020 02:38
Finalized Date: 08/31/2020 08:20

</td> ID Date Data Source [id number] 08/31/2020 01:35:00 [place] [facility] [id number] Name Value Range Interpretation Description Data Source(s ) Supporting Code Document(s ) ABO-Rh Type B POS <td> [place] 08/31/2020 [facility] 01:35</td><td> Care ABO-Rh Type [employer] </td><td> B POS
</td> Antibody NEG <td> [place] Screen 08/31/2020 [facility] 01:35</td><td> Care Antibody Corporation Screen </td><td> NEG
</td> Specimen 09/03/20 <td> [place] expiration 20 23:59 08/31/2020 [facility] date of Blood 01:35</td><td> Care Specimen Corporation Expiration Date </td><td> 09/03/2020 23:59
</td> Procedure Vital Signs ID Date Data Source UNK Name Value Range Interpretation Code Description Data Source(s) wt - obtain Normal (applies to {} [facility] non-numeric results) [facility] weight - kg 70.0000 {} Normal (applies to 70.0000 {} [facility] non-numeric results) [facility] Diastolic blood 56 {} Normal (applies to 56 {} [place] pressure non-numeric results) [facility] Systolic blood 118 {} Normal (applies to 118 {} [place] pressure non-numeric results) [facility] First Respiration 19.0000 {} Normal (applies to 19.0000 {} [place] rate Set non-numeric results) [facility] Heart rate 68.0000 {} Normal (applies to 68.0000 {} [facility]aren non-numeric results) [facility] Body temperature 98.7000 {} Normal (applies to 98.7000 {} [place] non-numeric results) [facility] Mean blood 74.0000 {} Normal (applies to 74.0000 {} [facility] karen pressure non-numeric results) [facility]
--- NOTE | 2020-09-02 19:34 | PDOC ---
History of Present Illness - General Chief Complaint: Urinary Catheter Problem Stated Complaint: "i think my catheter is leaking" Time Seen by Provider: 09/02/20 19:21 History Source: Patient Exam Limitations: No Limitations - History of Present Illness Initial Comments: 09/02/20 21:04 This is a 75-year-old male who comes in complaining saying that he thinks his catheter is using no leaking. Patient was discharged today from [facility] after having a seizure. Patient had a catheter placed while he was in the Medical [facility] and that was not removed. It is unclear as to why patient's catheter was not removed. Patient said he did have a catheter a number of years ago secondary to prostate problems. Allergies: as per nursing notes Past Medical History: none Social history: Lives with family. No smoking. No alcohol. No illicit drugs. Surgical history: None General: No fevers or chills, no weakness, no weight loss HEENT: No change in vision. No sore throat,. No ear pain CardioVascular: no chest discomfort. No shortness of breath Respiratory:No cough, or wheezing. Gastrointestinal: no nausea, vomiting, diarrhea or constipation, No rectal ble eding Genitourinary: No dysuria, hematuria, or frequency, catheter problem Musculoskeletal: No joint or muscle pain or swelling Neurologic: No headache, vertigo, dizziness or loss of consciousness Psychiatric: nor depression Skin: No rashes or easy bruising Endocrine: no increased thirst or abnormal weight change Allergic: no skin or latex allergy All other systems reviewed and normal GENERAL: The patient is awake, alert, and fully oriented, in no acute distress. HEENT:Head is normal with no signs of trauma. Eyes: Pupils equal, round and reactive to light, Ears, and Throat are normal. Neck is supple. No Lymphadenopathy. EXTREMITIES:atraumatic, Normal range of motion, no edema. : Patient has what appears to be a pediatric catheter. This is most likely why it it is leaking as it may be a little on the small side. However I did not want to remove it given its small size as I may not be able to replace it. I recommended that patient call his urologist in the morning and follow-up. Otherwise there was a small amount of urine in his bag and it was clear and there was no visible leaking at this time NEUROLOGICAL: Normal speech, normal gait. PSYCH: Normal mood, normal affect. SKIN: Warm, Dry, normal turgor, no rashes or lesions noted. Plan: This is a 75-year-old male with a pediatric catheter that is leaking however there is no visible leaking at this timeThis is most likely why it it is leaking as it may be a little on the small side. However I did not want to remove it given its small size as I may not be able to replace it. I recommended that patient call his urologist in the morning and follow-up. Otherwise there was a small amount of urine in his bag and it was clear and there was no visible leaking at this time Past History - Medical History Allergies/Adverse Reactions: Allergies Allergy/AdvReac Type Severity Reaction Status Date / Time No Known Allergies Allergy Verified 09/02/20 19:19 Cancer: Yes (CLL, PROSTATE) COPD: No DVT: Yes Seizures: Yes - Surgical History Lung Surgery: Yes (CYST REMOVED) - Immunization History Immunization Up to Date: Yes - Psycho-Social/Smoking History Smoking History: Current every day smoker Have you smoked in the past 12 months: Yes Number of Cigarettes Smoked Daily: 3 Information on smoking cessation initiated: No 'Breaking Loose' booklet given: 11/23/15 - Substance Abuse Hx (Audit-C & DAST Scrn) How often the patient has a drink containing alcohol: Never Score: In Men: 4 or > Positive; In Women: 3 or > Positive: 0 Screen Result (Pos requires Nsg. Audit-10AR): Negative *Physical Exam - Vital Signs Last Vital Signs Temp Pulse Resp BP Pulse Ox 98.7 F 61 18 112/69 97 09/02/20 19:22 09/02/20 19:22 09/02/20 19:22 09/02/20 19:22 09/02/20 19:22 Discharge - Discharge Information Problems reviewed: Yes Clinical Impression/Diagnosis: Mike catheter problem Condition: Good Disposition: HOME - Admission No - Follow up/Referral Referrals: Jerome Wiggins [Primary Care Provider] - - Patient Discharge Instructions Additional Instructions: Call the urologist in the morning and discuss the catheter issues with him. Return to the emergency department immediately with ANY new, persistent or worsening symptoms. Continue any medications as previously prescribed by your physician. You should follow up with your primary doctor as soon as possible regarding today's emergency department visit. . Please make sure your doctor reviews the results of your emergency evaluation. Thank you for coming to the Emergency Department today for your care. It was a pleasure to see you today. Please note that your evaluation is INCOMPLETE until you follow-up with your doctor. - Post Discharge Activity
[2020-09-02 19:36] VITALS: BP 112/69; PULSE 61; TEMP 98.7; BMI 21.3
== END 2020-09-02 19:52 | disposition home or self-care (01) ==
LOC: FER 19:16
DX: T83.098A Other mechanical complication of other urinary catheter, initial encounter (principal)
CPT/HCPCS: 99284-25